=== PATIENT | female | born 1965 | race Asian ===

== ENCOUNTER 2022-02-25 09:54 | Outpatient (CLI) | payer BC | END 2022-02-25 09:55 | disposition home or self-care (01) | LOC: SCSRAD 09:54 | PROVIDERS: ATTEND Family Medicine | DX: J40 Bronchitis, not specified as acute or chronic (principal); J01.90 Acute sinusitis, unspecified; R05.3 Chronic cough; R05.9 Cough, unspecified; U09.9 Post COVID-19 condition, unspecified | CPT/HCPCS: 71046 ==

== ENCOUNTER 2022-12-08 11:51 | Outpatient (CLI) | payer BC | END 2022-12-08 11:52 | disposition home or self-care (01) | LOC: SCSRAD 11:51 | PROVIDERS: ATTEND Family Medicine | DX: R07.89 Other chest pain (principal) | CPT/HCPCS: 71046 ==